=== PATIENT | female | born 1990 | race Caucasian/White ===

== ENCOUNTER → 2019-08-22 10:52 | Outpatient (CLI) | payer OTHER, MEDICAID, SELFPAY ==
[2019-08-22 11:58] LABS: Add Manual Diff / Slide Review NO; Basophils Absolute Auto 0 /uL (0-100); Basophils Percent Auto 0.2 % (0-2); Eosinophils Absolute Auto 100 /uL (0-450); Eosinophils Percent Auto 0.4 % (2-4); Hemoglobin 13.9 g/dL (12.0-16.0); Lymphocytes Absolute Auto 2000 /uL (1100-4500); Lymphocytes Percent Auto 14.7 % (25-40); Mean Corpuscular Hemoglobin 31.4 PG (26-34); Mean Corpuscular Volume 92.3 fL (80-100); Monocytes Absolute Auto 900 /uL (0-900); Monocytes Percent Auto 6.5 % (3-14); Neutrophils Absolute Auto 10800 /uL (1500-7000); Neutrophils Percent Auto 78.2 % (50-75); Platelet Count 285 X10^3/uL (150-400); Red Blood Cell Count 4.44 X10^6/uL (4.0-5.2); Red Cell Distribution Width 12.9 % (11.6-14.8); White Blood Cell Count 13.8 X10^3/uL (4.5-11.0)
[2019-08-22 13:02] LABS: Thyroid Stimulating Hormone 4.29 uIU/mL (0.47-4.68)
== END ==
PROVIDERS: PCP Family Medicine; Visit Provider Psychiatry & Neurology Psychiatry
DX: F31.81 Bipolar II disorder (principal); F32.9 Major depressive disorder, single episode, unspecified
CPT/HCPCS: 36415; 84443; 85025

== ENCOUNTER → 2019-12-02 12:04 | Outpatient (CLI) | payer OTHER, MEDICAID, SELFPAY ==
[2019-12-02 12:41] LABS: Hematocrit 41.1 % (36-46); Mean Corpuscular HGB Conc 34.1 % (30-36); Mean Corpuscular Hemoglobin 31.3 PG (26-34); Mean Corpuscular Volume 91.7 fL (80-100); Platelet Count 283 X10^3/uL (150-400); Red Blood Cell Count 4.48 X10^6/uL (4.0-5.2); Red Cell Distribution Width 12.5 % (11.6-14.8); White Blood Cell Count 6.7 X10^3/uL (4.5-11.0)
[2019-12-02 13:06] LABS: Alanine Aminotransferase 21 IU/L (<35); Albumin 4.6 g/dL (3.5-5.0); Albumin Globulin Ratio 1.4 (1.0-2.8); Alkaline Phosphatase 57 U/L (38-126); Aspartate Aminotransferase 24 IU/L (14-36); BUN Creatinine Ratio 22.9 (6-22); Bilirubin Total 0.7 mg/dL (0.2-1.3); Blood Urea Nitrogen 16 mg/dL (7-17); Calcium 9.5 mg/dL (8.4-10.2); Carbon Dioxide 27 mmol/L (22-32); Chloride 106 mmol/L (98-107); Cholesterol 197 mg/dL (140-199); Estimated Glomerular Filt Rate > 60.0 mL/min (>60); Globulin 3.3 g/dL (1.7-4.1); Glucose 95 mg/dL (70-100); HDL Cholesterol 53 mg/dL (40-60); HEMOLYSIS < 15 (0-50); LDL Cholesterol Calculated 131 mg/dL (<100); Potassium 4.6 mmol/L (3.4-5.1); Sodium 139 mmol/L (137-145); Total Protein 7.9 g/dL (6.3-8.2); Triglycerides 66 mg/dL (35-150)
[2019-12-02 13:10] LABS: C-Reactive Protein Quant < 0.5 mg/dL (<1.0)
[2019-12-02 13:46] LABS: Erythrocyte Sedimentation Rate 8 MM/HR (0-20)
[2019-12-05 14:36] LABS: ANA Screen, IFA Negative (.)
== END ==
PROVIDERS: PCP Nurse Practitioner Family; Referring Provider Nurse Practitioner Family; Visit Provider Nurse Practitioner Family
DX: Z00.00 Encounter for general adult medical examination without abnormal findings (principal); Z13.6 Encounter for screening for cardiovascular disorders; M25.50 Pain in unspecified joint
CPT/HCPCS: 36415; 80053; 80061; 85027; 85651; 86038; 86140

== ENCOUNTER 2020-01-13 10:17 | Observation (INO) | payer OTHER, MEDICAID, SELFPAY ==
[2020-01-13] VITALS (7 sets, daily range): BP systolic 95–121; BP diastolic 54–79; PULSE 52–74; RESP 12–18; TEMP 36.3–37.1; O2SAT 98–100; BMI 33.3
--- NOTE | 2020-01-13 10:30 | DI.CT.S_ITS ---
PROCEDURE: CT ABDOMEN PELVIS W CON INDICATIONS: RLQ pain / wait for labs TECHNIQUE: After the administration of intravenous contrast, 5 mm thick sections acquired from the diaphragm to the symphysis. 5 mm coronal and sagittal reformats were acquired. For radiation dose reduction, the following was used: automated exposure control, adjustment of mA and/or kV according to patient size. COMPARISON: None. FINDINGS: Image quality: Excellent. ABDOMEN: Lung bases: Lung bases are clear. Heart size is normal. Solid organs: Liver is normal in size and enhancement. Gallbladder wall does not appear thickened. Biliary system is non dilated. Pancreas enhances normally. Spleen is normal in size and enhancement. No adrenal nodules. Kidneys demonstrate normal size and enhancement, without hydronephrosis. Peritoneum and bowel: In this patient with this given history, scrutiny is given to the appendix. The appendix demonstrates minimal increased caliber, as on series 2 image 65 measuring 8 mm. There is mild hyperenhancement seen of the wall of the appendix. There are apparently 2 appendicoliths present, as on series 2 images 67 and 68. No findings of perforation or abscess can be seen. Bowel loops demonstrate normal wall thickness and caliber. No free fluid or air. Nodes and vessels: No retroperitoneal or mesenteric adenopathy by size criteria. Aorta and inferior vena cava are normal in size. Miscellaneous: No ventral hernias. PELVIS: Genitourinary: Bladder wall thickness is normal. There is an apparent hemorrhagic cyst involving the left ovary that measures 1.8 cm. No abnormality of the right ovary can be seen. The uterus is unremarkable. Miscellaneous: No inguinal hernias or adenopathy. Bones: No suspicious bony lesions. No vertebral body compression fractures. IMPRESSION: These imaging findings are most compatible with early appendicitis. No findings of perforation or abscess can be seen. Apparent LEFT ovarian hemorrhagic cyst. At clinical discretion, a followup pelvic ultrasound is suggested in 6 weeks to assure resolution/ improvement. Dictated by: Ricky De La Rosa M.D. on 01/13/2020 at 11:07 Approved by: Ricky De La Rosa M.D. on 01/13/2020 at 11:10
[2020-01-13 10:40] LABS: Add Manual Diff / Slide Review NO; Basophils Absolute Auto 0 /uL (0-100); Basophils Percent Auto 0.5 % (0-2); Eosinophils Absolute Auto 200 /uL (0-450); Eosinophils Percent Auto 1.9 % (2-4); Hematocrit 40.9 % (36-46); Hemoglobin 14.3 g/dL (12.0-16.0); Lymphocytes Absolute Auto 2800 /uL (1100-4500); Lymphocytes Percent Auto 30.9 % (25-40); Mean Corpuscular Hemoglobin 31.5 PG (26-34); Mean Corpuscular Volume 90.3 fL (80-100); Monocytes Absolute Auto 800 /uL (0-900); Monocytes Percent Auto 8.9 % (3-14); Neutrophils Absolute Auto 5200 /uL (1500-7000); Neutrophils Percent Auto 57.8 % (50-75); Platelet Count 249 X10^3/uL (150-400); Red Blood Cell Count 4.53 X10^6/uL (4.0-5.2); Red Cell Distribution Width 12.4 % (11.6-14.8)
[2020-01-13] MEDS: SODIUM CHLORIDE 0.9% 1,000 ML 1000 ML IV (10:40)
[2020-01-13] MEDS: ONDANSETRON 4 MG/2 ML INJ IV ×3 (10:43→20:06)
[2020-01-13] MEDS: MORPHINE 4 MG/ML INJ IV ×2 (10:43→13:41)
[2020-01-13 10:53] LABS: INR 1.1 (0.9-1.3); Prothrombin Time 12.2 SECONDS (10.1-12.7)
[2020-01-13 10:55] LABS: PTT Partial Thromboplastin Tim 35 SECONDS (26.4-36.2)
[2020-01-13 10:57] LABS: Alanine Aminotransferase 14 IU/L (<35); Albumin 4.7 g/dL (3.5-5.0); Albumin Globulin Ratio 1.5 (1.0-2.8); Alkaline Phosphatase 59 U/L (38-126); Aspartate Aminotransferase 30 IU/L (14-36); BUN Creatinine Ratio 22.4 (6-22); Bilirubin Total 0.7 mg/dL (0.2-1.3); Blood Urea Nitrogen 15 mg/dL (7-17); Calcium 9.8 mg/dL (8.4-10.2); Carbon Dioxide 20 mmol/L (22-32); Chloride 107 mmol/L (98-107); Estimated Glomerular Filt Rate > 60.0 mL/min (>60); Globulin 3.1 g/dL (1.7-4.1); Glucose 96 mg/dL (70-100); HEMOLYSIS < 15 (0-50); Lipase 174 U/L (23-300); Sodium 138 mmol/L (137-145); Total Protein 7.8 g/dL (6.3-8.2)
--- NOTE | 2020-01-13 11:19 | ED_ITS ---
HPI - Abdominal Pain General Chief Complaint: Abdominal Pain Stated Complaint: Really bad, sharp pain in right lower abdomen Time Seen by Provider: 01/13/20 10:36 Source: patient Mode of arrival: Ambulatory Limitations: no limitations History of Present Illness HPI narrative: CC: Right lower quadrant abdominal pain HPI: The patient is a 29-year-old female who presents to the emergency department with a severe right lower quadrant abdominal pain that is sharp and crampy in nature. The pain and discomfort developed at between 3 and 4:00 a.m. this morning waking the patient from sleep. She denies ever having a history of kidney stones. She states that initially she had difficulty in going to the bathroom but then was able to urinate without any discomfort. She has not noted any increased urinary frequency, urgency, hematuria, or cloudy urine. She has had no significant nausea or vomiting. She has never before experience this pain and discomfort and appears to be very uncomfortable. She states that the pain is 9 to 10/10 in nature. Her last menstrual period was December 25 which was normal. She denies being . She has had no vaginal discharge or vaginal arm she has had no nasal congestion or stuffiness shortness of breath cough chest pain palpitations or dizziness. She denies any back pain diarrhea. Related Data Previous Rx's Medication Instructions Recorded hydroxyzine pamoate 25 mg capsule 25 mg PO BID PRN #60 cap 12/15/19 lamotrigine 100 mg tablet 200 mg PO BEDTIME #60 tab 12/15/19 Allergies Allergy/AdvReac Type Severity Reaction Status Date / Time No Known Drug Allergies Allergy Verified 01/13/20 10:27 Review of Systems Review of Systems Narrative: Her review of systems were all negative except for those mentioned in the history of present illness. Patient History Medical History Allergies (Chronic ~2003) Anxiety (Chronic ~2009) Bipolar disorder (Acute 2001) Depression (Chronic) Headache (Chronic ~2005) Hearing loss (Chronic) Joint pain (Acute 2012) Recurrent sinusitis (Chronic) Rosacea (Chronic) Sciatica (Chronic ~2015) Shoulder pain (Chronic ~2010) Tinnitus (Chronic) Vertigo (Chronic) Surgical History (Resolved ~2011) Anesthesia (Resolved) [place] teeth removed (Resolved ~2008) Family History Father Cataracts, bilateral Mother Diabetes mellitus Brother Mental health problem Social History household members: spouse Smoking Status: Never smoker Smoking Status: Never smoker alcohol intake frequency: 0-2 drinks per day Substance Use Type: marijuana Exam Narrative Exam Narrative: PHYSICAL EXAM: CONSTITUTIONAL: Awake, Alert, Oriented, Coherent, Cooperative in Moderate distress. He appears uncomfortable as though she is having a kidney stone. Otherwise she does not appear ill or toxic. HEAD: AT/NC EENT: PERRL, FROM of eyes, no discharge, NOSE:No epistaxis or nasal drainage MOUTH:Oral mucosa is moist and pink, posterior pharynx is without erythema or exudate. NECK: Supple, no obvious JVD, Trachea is midline without stridor, no palpable LN. SPINE: Palpation of the cervical, Thoracic, Lumbar or Sacral spine reveals no gross deformity or tenderness. No CVA tenderness. THORAX: No deformity, retractions, chest wall tenderness. LUNGS: Clear, symmetrical breath sounds without respiratory distress. HEART: Normal heart tones, regular rhythm and rate without murmur. ABDOMEN: Soft, globular, doughy, rotund, tender in the right lower quadrant with guarding but no rebound. No palpable mass. LYMPHATIC: no palpable spleen. EXTREMITIES: No edema, deformity, tenderness or cyanosis. SKIN: No rash, bruising, petechiae or purpura. NEURO: Awake, alert, oriented, conversive, cranial nerves II-XII are symmetrical , moves all 4 extremities and is ambulatory. Initial Vital Signs Initial Vital Signs: Vital Signs Temperature 98.7 F 01/13/20 10:20 Pulse Rate 72 01/13/20 10:20 Respiratory Rate 18 01/13/20 10:20 Blood Pressure 112/57 L 01/13/20 10:20 Pulse Oximetry 99 01/13/20 10:20 Course Course Course Narrative: 12:38: The patient's CT scan of her abdomen reveals imaging consistent with early appendicitis. There was no evidence of a perforation or abscess at this site time. There is a left ovarian hemorrhagic cyst present ultrasound in [address] Macias is seen another patient in the emergency department will inform her to evaluate this patient. 12:44: The patient and her significant other were informed that she has early appendicitis and that she would probably be evaluated by Dr. Macias general surgeon on-call. She stated that between 9 and 10:00 a.m. this morning she had water to drink otherwise she has had nothing to eat or drink since last night around 6:00 p.m. at which time she ate chicken. She denies any allergies. Orders Ordered: Acetaminophen (Tylenol) 650 mg PO Q6HR PRN PRN Reason: Pain, Mild (1-3) Last Admin: 01/13/20 20:06 Dose: 650 mg Documented by: JAIDEN Docusate Sodium (Colace) 100 mg PO BID PRN PRN Reason: Constipation Hydroxyzine Pamoate (Vistaril) 25 mg PO Q6HR PRN PRN Reason: Anxiety Lactated Ringer's (Lactated Ringers) 1,000 mls @ 90 mls/hr IV CONT [facility] Last Admin: 01/14/20 01:08 Dose: 90 mls/hr Documented by: Infusion: 01/14/20 00:58 Dose: 125 mls/hr Documented by: Admin: 01/13/20 16:58 Dose: 125 mls/hr Documented by: JAIDEN Piperacillin/Tazobactam/Dextrose (Zosyn) 3.375 gm in 50 mls @ 100 mls/hr IV Q6H [facility] Last Infusion: 01/14/20 07:46 Dose: 0 mls/hr Documented by: Admin: 01/14/20 06:20 Dose: 100 mls/hr Documented by: Infusion: 01/14/20 02:32 Dose: 0 mls/hr Documented by: Admin: 01/14/20 01:08 Dose: 100 mls/hr Documented by: Infusion: 01/13/20 20:03 Dose: 0 mls/hr Documented by: Admin: 01/13/20 19:13 Dose: 100 mls/hr Documented by: JAIDEN Influenza Virus Vaccine (Flu Vaccine) 0.5 ml IM .ONCE ONE Stop: 01/14/20 09:01 Ketorolac Tromethamine (Toradol) 15 mg IV Q6H PRN PRN Reason: Pain, Moderate (4-6) Stop: 01/18/20 13:50 Lamotrigine (Lamictal) 200 mg PO BEDTIME REYES Last Admin: 01/13/20 22:50 Dose: 200 mg Documented by: JAIDEN Morphine Sulfate (Morphine) 4 mg IV Q4HR PRN PRN Reason: pain 4-10 Stop: 01/14/20 13:29 Last Admin: 01/13/20 13:41 Dose: 4 mg Documented by: CODY Morphine Sulfate (Morphine) 2 mg IV Q4HR PRN PRN Reason: Pain, Moderate (4-6) Last Admin: 01/14/20 00:11 Dose: 2 mg Documented by: FAY Naloxone HCl (Narcan) 0.2 mg IV Q2MIN PRN PRN Reason: Opiate Reversal Non-Formulary Medication (Patient's Own Medication) 0 each PO PRN PRN PRN Reason: HOME MEDICATION STOREAGE Ondansetron HCl (Zofran) 4 mg IV Q4HR PRN PRN Reason: nausea / vomiting Stop: 01/14/20 13:28 Last Admin: 01/13/20 20:06 Dose: 4 mg Documented by: JAIDEN Ondansetron HCl (Zofran) 4 mg IV Q4HR PRN PRN Reason: Nausea And Vomiting Last Admin: 01/13/20 17:13 Dose: 4 mg Documented by: JAIDEN Oxycodone/Acetaminophen (Percocet 5/325) 1 tab PO Q4HR PRN PRN Reason: Pain, Moderate (4-6) Discontinued Medications Sodium Chloride (Normal Saline 0.9%) 1,000 mls @ 1,000 mls/hr IV BOLUS ONE Stop: 01/13/20 11:29 Last Infusion: 01/13/20 11:45 Dose: 0 mls/hr Documented by: Admin: 01/13/20 10:40 Dose: 1,000 mls/hr Documented by: MARGARITA Piperacillin/Tazobactam/Dextrose (Zosyn) 4.5 gm in 100 mls @ 200 mls/hr IV NOW ONE Stop: 01/13/20 13:26 Last Infusion: 01/13/20 14:00 Dose: 0 mls/hr Documented by: Admin: 04/25/20 13:14 Dose: 200 mls/hr Documented by: CODY Sodium Chloride (Normal Saline 0.9%) 1,000 mls @ 150 mls/hr IV BOLUS ONE Stop: 01/13/20 19:45 Last Infusion: 01/13/20 14:31 Dose: 0 mls/hr Documented by: Admin: 01/13/20 13:14 Dose: 150 mls/hr Documented by: CODY Lactated Ringer's (Lactated Ringers) 1,000 mls @ 100 mls/hr IV CONT REYES Last Admin: 01/13/20 23:34 Dose: Not Given Documented by: FAY Piperacillin/Tazobactam/Dextrose (Zosyn) 3.375 gm in 50 mls @ 100 mls/hr IV Q6H [facility] Influenza Virus Vaccine (Flu Vaccine) 0.5 ml IM .ONCE ONE Stop: 01/13/20 14:52 Morphine Sulfate (Morphine) 4 mg IV NOW ONE Stop: 01/13/20 10:41 Last Admin: 01/13/20 10:43 Dose: 4 mg Documented by: MARGARITA Ondansetron HCl (Zofran) 4 mg IV NOW ONE Stop: 01/13/20 10:41 Last Admin: 01/13/20 10:43 Dose: 4 mg Documented by: MARGARITA Vital Signs Vital signs: Vital Signs - 8 hr 01/13/20 10:20 01/13/20 10:53 01/13/20 11:18 Temperature 98.7 F Pulse Rate 72 74 70 Respiratory Rate 18 15 12 Blood Pressure 112/57 L Blood Pressure [Left Arm] 95/54 L 97/58 L Pulse Oximetry 99 99 MDM - Abdominal Pain Lab Data Result diagrams: 01/14/20 05:00 01/14/20 05:00 Labs: Lab Results 01/13/20 01/13/20 01/13/20 Range/Units 10:30 10:30 10:30 WBC 9.0 (4.5-11.0) X10^3/uL RBC 4.53 (4.0-5.2) X10^6/uL Hgb 14.3 (12.0-16.0) g/dL Hct 40.9 (36-46) % MCV 90.3 (80-100) fL MCH 31.5 (26-34) PG MCHC 35.0 (30-36) % RDW 12.4 (11.6-14.8) % Plt Count 249 (150-400) X10^3/uL Neut % (Auto) 57.8 (50-75) % Lymph % (Auto) 30.9 (25-40) % [place] % (Auto) 8.9 (3-14) % Eos % (Auto) 1.9 L (2-4) % Baso % (Auto) 0.5 (0-2) % Neut # (Auto) 5200 (6001-6528) /uL Lymph # (Auto) 2800 (6324-5052) /uL [place] # (Auto) 800 (0-900) /uL Eos # (Auto) 200 (0-450) /uL Baso # (Auto) 0 (0-100) /uL PT 12.2 (10.1-12.7) SECONDS INR 1.1 (0.9-1.3) APTT 35 (26.4-36.2) SECONDS Sodium 138 (137-145) mmol/L Potassium 4.0 (3.4-5.1) mmol/L Chloride 107 (98-107) mmol/L Carbon Dioxide 20 L (22-32) mmol/L BUN 15 (7-17) mg/dL Creatinine 0.67 (0.52-1.04) mg/dL Estimated GFR > 60.0 (>60) mL/min BUN/Creatinine Ratio 22.4 H (6-22) Glucose 96 (70-100) mg/dL Calcium 9.8 (8.4-10.2) mg/dL Total Bilirubin 0.7 (0.2-1.3) mg/dL AST 30 (14-36) IU/L ALT 14 (<35) IU/L Alkaline Phosphatase 59 (38-126) U/L Total Protein 7.8 (6.3-8.2) g/dL Albumin 4.7 (3.5-5.0) g/dL Globulin 3.1 (1.7-4.1) g/dL Albumin/Globulin Ratio 1.5 (1.0-2.8) Lipase 174 (23-300) U/L COVID-19 PCR (Not Detect) 01/13/20 Range/Units 12:57 WBC (4.5-11.0) X10^3/uL RBC (4.0-5.2) X10^6/uL Hgb (12.0-16.0) g/dL Hct (36-46) % MCV (80-100) fL MCH (26-34) PG MCHC (30-36) % RDW (11.6-14.8) % Plt Count (150-400) X10^3/uL Neut % (Auto) (50-75) % Lymph % (Auto) (25-40) % [place] % (Auto) (3-14) % Eos % (Auto) (2-4) % Baso % (Auto) (0-2) % Neut # (Auto) (6199-9376) /uL Lymph # (Auto) (5255-3457) /uL [place] # (Auto) (0-900) /uL Eos # (Auto) (0-450) /uL Baso # (Auto) (0-100) /uL PT (10.1-12.7) SECONDS INR (0.9-1.3) APTT (26.4-36.2) SECONDS Sodium (137-145) mmol/L Potassium (3.4-5.1) mmol/L Chloride (98-107) mmol/L Carbon Dioxide (22-32) mmol/L BUN (7-17) mg/dL Creatinine (0.52-1.04) mg/dL Estimated GFR (>60) mL/min BUN/Creatinine Ratio (6-22) Glucose (70-100) mg/dL Calcium (8.4-10.2) mg/dL Total Bilirubin (0.2-1.3) mg/dL AST (14-36) IU/L ALT (<35) IU/L Alkaline Phosphatase (38-126) U/L Total Protein (6.3-8.2) g/dL Albumin (3.5-5.0) g/dL Globulin (1.7-4.1) g/dL Albumin/Globulin Ratio (1.0-2.8) Lipase (23-300) U/L COVID-19 PCR Not detected (Not Detect) Point of care testing: Point of Care Testing Test Results Negative Urine Dip Bedside Urine Glucose Negative Bedside Urine Bilirubin - Negative Bedside Urine Ketone - Negative Urine Specific [place] 1.010 Bedside Urine Occult Blood - Negative Bedside Urine pH 8.0 Bedside Urine Protein - Negative Bedside Urine Urobilinogen - Negative Bedside Urine Nitrite - Negative Bedside Urine Leukocytes - Negative Esterase Discharge Plan Departure Patient Disposition: Admitted As Inpatient Clinical Impression: Abdominal pain Qualifiers: Abdominal location: right lower quadrant Qualified Code(s): R10.31 - Right lower quadrant pain Acute appendicitis Qualifiers: Acute appendicitis type: unspecified acute appendicitis type Qualified Code(s): K35.80 - Unspecified acute appendicitis Discharge Date/Time: 01/13/20 14:44 Referrals: Irene Patino ARNP [Primary Care Provider] - Admit Date/Time: 01/13/20 13:38 Admit Provider: Shyanne Macias
[2020-01-13] MEDS: SODIUM CHLORIDE 0.9% 1,000 ML 150 ML IV (13:14)
[2020-01-13] MEDS: PIPERACILLIN-TAZO 4.5 GM/100 ML FROZ.PIGGY IV (13:14)
--- NOTE | 2020-01-13 13:54 | P.HP_ITS ---
History of Present Illness History of Present Illness Date Patient Seen: 01/13/20 Time Patient Seen: 13:54 Chief complaint: Really bad, sharp pain in right lower abdomen Narrative: This is a 29yo woman with history of bipolar disorder who presented to the emergency department with a severe right lower quadrant abdominal pain starting at about 3AM. She denies dysuria, nausea, vomiting, diarrhea, or constipation. She denies fevers/chills. CT scan of her abdomen is consistent with early acute appendicitis. ROS: Thirteen system review is otherwise negative other than as mentioned below and in HPI. PE: GENERAL: Alert, comfortable. Appears stated age. Answers questions promptly and appropriately. Vital signs noted. HENT: Normocephalic, atraumatic. Hearing intact. Oral mucosa is pink and moist. EYES: Conjunctiva pink, sclera white, no periorbital swelling. CARDIOVASCULAR: Regular rate. No pedal edema. RESPIRATORY: Non-tachypneic, breathing comfortably on room air. GASTROINTESTINAL: Abdomen soft and non-distended; focal TTP in RLQ and right flank; negative rovsing sign MUSCULOSKELETAL: Equal tone and mass bilaterally. SKIN: Warm, dry, soft, appropriate color for ethnicity. No other lesions, rashes, or wounds. NEURO: Alert and Oriented X 3. No gross sensory deficits, or cognitive issues. PSYCH: Appropriate affect and mood. Patient History Medical History Allergies (Chronic ~2003) Anxiety (Chronic ~2009) Bipolar disorder (Acute 2001) Depression (Chronic) Headache (Chronic ~2005) Hearing loss (Chronic) Joint pain (Acute 2012) Recurrent sinusitis (Chronic) Rosacea (Chronic) Sciatica (Chronic ~2015) Shoulder pain (Chronic ~2010) Tinnitus (Chronic) Vertigo (Chronic) Surgical History (Resolved ~2011) Anesthesia (Resolved) [place] teeth removed (Resolved ~2008) Family & Social History Family History Father Cataracts, bilateral Mother Diabetes mellitus Brother Mental health problem Safety & Behavioral: Feels Safe in Current Yes Environment Been Physically Hurt or No Threatened By a Person Tobacco & Substance use: Smoking Status Never smoker alcohol intake frequency 0-2 drinks per day Substance Use Type marijuana Meds Home Medications and Allergies Home Medications Medication Instructions Recorded Confirmed Type hydroxyzine pamoate 25 mg capsule 25 mg PO BID PRN #60 cap 12/15/19 01/13/20 Rx lamotrigine 100 mg tablet 200 mg PO BEDTIME #60 tab 12/15/19 01/13/20 Rx Allergies Allergy/AdvReac Type Severity Reaction Status Date / Time No Known Drug Allergies Allergy Verified 01/13/20 10:27 Exam Vital Signs (past 8 hours): - 01/13/20 10:20 01/13/20 10:53 01/13/20 11:18 Temperature 98.7 F Pulse Rate 72 74 70 Respiratory Rate 18 15 12 Blood Pressure 112/57 L Blood Pressure [Left Arm] 95/54 L 97/58 L Pulse Oximetry 99 99 01/13/20 13:07 Temperature Pulse Rate 64 Respiratory Rate 15 Blood Pressure Blood Pressure [Left Arm] 95/59 L Pulse Oximetry 98 Oxygen Delivery Method Room Air Objective Imaging CT scan - abdomen: Radiologist's impression: Early acute appendicitis and hemorrhagic left ovarian cyst Labs Result Diagrams: 01/13/20 10:30 01/13/20 10:30 Labs: Laboratory Results - last 24 hr 01/13/20 01/13/20 01/13/20 10:30 10:30 10:30 WBC 9.0 RBC 4.53 Hgb 14.3 Hct 40.9 MCV 90.3 MCH 31.5 MCHC 35.0 RDW 12.4 Plt Count 249 Neut % (Auto) 57.8 Lymph % (Auto) 30.9 [place] % (Auto) 8.9 Eos % (Auto) 1.9 L Baso % (Auto) 0.5 Neut # (Auto) 5200 Lymph # (Auto) 2800 [place] # (Auto) 800 Eos # (Auto) 200 Baso # (Auto) 0 PT 12.2 INR 1.1 APTT 35 Sodium 138 Potassium 4.0 Chloride 107 Carbon Dioxide 20 L BUN 15 Creatinine 0.67 Estimated GFR > 60.0 BUN/Creatinine Ratio 22.4 H Glucose 96 Calcium 9.8 Total Bilirubin 0.7 AST 30 ALT 14 Alkaline Phosphatase 59 Total Protein 7.8 Albumin 4.7 Globulin 3.1 Albumin/Globulin Ratio 1.5 Lipase 174 Assessment & Plan Assessment and plan (1) Acute appendicitis: Qualifiers: Acute appendicitis type: unspecified acute appendicitis type Qualified Code(s): K35.80 - Unspecified acute appendicitis Current visit: Yes Status: Acute (2) Bipolar disorder: Current visit: No Status: Acute (3) Ovarian cyst: Current visit: Yes Status: Acute Assessment & Plan narrative: This is a 29-year-old woman with early acute append icitis. We have submitted her COVID-19 testing, and have put her on IV antibiotics. I discussed with her the risks and benefits of going ahead with surgery versus waiting until her viral test is returned, and keeping her on antibiotics for the night. I favor doing the latter as we can do a more a ppropriate surgical procedure without the restrictions of unknown viral status. Also her appendicitis is early and I think she will do well on antibiotics overnight. I will keep her on clear liquid diet, and if she has a significant turn for the worse we will go ahead to the OR regardless of her viral status. Plan: Clear liquid diet IV fluids Ambulate as tolerated IV Zosyn antibiotics Repeat labs in the morning Go to OR for urgent appendectomy as soon as viral status is known COVID-19 COVID-19 status: Result pending Time Spent With Patient Time with patient: Greater than 35 minutes Quality VTE Deep Vein Thrombosis/Pulmonary Embolism Present on Admission: No
[2020-01-13] MEDS: LACTATED RINGERS 1,000 ML 125 ML IV (16:58)
[2020-01-13] MEDS: PIPERACILLIN-TAZO 3.375 GM/50 ML FROZ.PIGGY IV (19:13)
[2020-01-13] MEDS: ACETAMINOPHEN 325 MG TABLET 650 MG PO (20:06)
[2020-01-13] MEDS: lamoTRIgine 100 MG TABLET 200 MG PO (22:50)
--- NOTE | 2020-01-13 23:43 | PC.NURSE ---
Evening note: Ariadne reports vague nausea that comes & goes, reports relief after medicated with IV Zofran. Denies significant pain, rates abdomen pain at a 3 or 4, denies need for IV Morphine. Tylenol given for her c/o headache pain 01/27. VS stable tonight, HR regular, jon in mid to high 50's. Lungs clear. Abdomen tender, BT hypoactive. Tolerating clear liquids, aware that she is NPO after midnight. Dr Macias here to see patient earlier tonight, she told me the Covid result will probably come back, please don't anyone call me if that is at 3 AM. I entered info as communication order in chart. Dr Macias did tell me to call if patient's status changes or worsens as she would come in to do surgery earlier if need be. IV to R hand very positional, pump beeping often from [id number], Drsg removed & IV repositioned in a few ways with no success. New 22g IV placed by Linden PARADA to L inner forearm & is infusing/flushing with no difficulty. IV to right hand DC'd. Ambulating to BR by self, gait steady, voiding large amounts of clear yellow urine. Patient remains pleasant & oriented x 3 tonight, words of comfort & encouragement offered tonight, she is using call button appropriately.
[2020-01-14] VITALS (10 sets, daily range): BP systolic 93–109; BP diastolic 40–72; PULSE 57–84; RESP 12–82; TEMP 36.1–36.8; O2SAT 16–100; BMI 33.3
--- NOTE | 2020-01-14 | PATH_ITS ---
[facility] Accession Number: [id number] . 01 Material submitted: . appendix - APPENDIX . 01 Clinical history: . REALLY BAD, SHARP PAIN IN RIGHT LOWER ABDOMEN . 02 Diagnosis: Appendix, Appendectomy: Acute appendicitis with dilated appendix and fecalith with reactive lymphoid hyperplasia. No evidence of neoplasia. [facility] 01/17/2020 1223 Local . 02 Electronically signed: . Nathalia Nolan MD, Pathologist NPI- [id number] . 01 Gross description: . Received in formalin, labeled appendix, is an intact appendix (length-6.6 cm, diameter-0.7 cm) with shah-white smooth shiny serosa and attached mesoappendix (up to 2.0 cm in depth). The resection margin is received crimped closed. The lumen contains brown solid soft material. The wall is up to 0.1 cm thick. No nodules, masses or lesions are identified. The resection margin is inked blue. Serially sectioned and entirely submitted proximal to distal in cassettes A1-A3 with the resection margin en face in cassette A1. The tip is bivalved and entirely submitted in cassettes A4-A5. ([id number]) /MRV 01/16/2020 1052 Local . 02 Pathologist provided ICD-10: K35.80 . 02 CPT . 297329 Performed at: 01 [facility] [address] [id number] MD Surinder Winters MD Phone: [phone] Performed at: 02 [facility] [address] [place], [place] [id number] MD Nathalia Nolan MD Phone: [phone]
[2020-01-14] MEDS: MORPHINE 2 MG/ML INJ IV (00:11)
[2020-01-14] MEDS: PIPERACILLIN-TAZO 3.375 GM/50 ML FROZ.PIGGY IV ×2 (01:08→06:20)
[2020-01-14] MEDS: LACTATED RINGERS 1,000 ML 90 ML IV (01:08)
[2020-01-14 02:15] LABS: COVID19 Sendout Not Detected (Not Detect)
[2020-01-14 05:29] LABS: Add Manual Diff / Slide Review NO; Basophils Absolute Auto 0 /uL (0-100); Basophils Percent Auto 0.3 % (0-2); Eosinophils Absolute Auto 200 /uL (0-450); Eosinophils Percent Auto 2.2 % (2-4); Hematocrit 37.1 % (36-46); Hemoglobin 12.6 g/dL (12.0-16.0); Lymphocytes Absolute Auto 3500 /uL (1100-4500); Lymphocytes Percent Auto 43.8 % (25-40); Mean Corpuscular HGB Conc 33.9 % (30-36); Mean Corpuscular Hemoglobin 31.1 PG (26-34); Mean Corpuscular Volume 91.6 fL (80-100); Monocytes Absolute Auto 600 /uL (0-900); Monocytes Percent Auto 7.8 % (3-14); Neutrophils Absolute Auto 3600 /uL (1500-7000); Neutrophils Percent Auto 45.9 % (50-75); Platelet Count 216 X10^3/uL (150-400); Red Blood Cell Count 4.05 X10^6/uL (4.0-5.2); Red Cell Distribution Width 12.5 % (11.6-14.8); White Blood Cell Count 7.9 X10^3/uL (4.5-11.0)
[2020-01-14 05:41] LABS: BUN Creatinine Ratio 13.5 (6-22); Blood Urea Nitrogen 10 mg/dL (7-17); Calcium 8.8 mg/dL (8.4-10.2); Carbon Dioxide 26 mmol/L (22-32); Chloride 106 mmol/L (98-107); Estimated Glomerular Filt Rate > 60.0 mL/min (>60); Glucose 86 mg/dL (70-100); HEMOLYSIS < 15 (0-50); Magnesium 1.8 mg/dL (1.6-2.3); Potassium 4.2 mmol/L (3.4-5.1); Sodium 137 mmol/L (137-145)
--- NOTE | 2020-01-14 09:32 | PC.NURSE ---
VSS. Up to bathroom this morning with standby assistance without difficulty. NPO overnight, IV fluids infusing as ordered. Patient picked up for surgery.
[2020-01-14] MEDS: LACTATED RINGERS 1,000 ML 42 ML IV (09:53)
--- NOTE | 2020-01-14 10:25 | SUR.OPER ---
Supine on padded OR bed, head on pillow, left arm padded and tucked at side, legs uncrossed, safety belt at thigh, tape over blanket over lower legs .
[2020-01-14] MEDS: BUPIVACAINE 0.25% W/ EPI 30 ML VIAL INJ (10:32)
--- NOTE | 2020-01-14 11:04 | PM.OP.1 ---
Operative Date/Time/Diagnoses Date of procedure: 01/14/20 Time of procedure: 11:04 Pre-op diagnosis: Early acute appendicitis Post-op diagnosis: same Procedure & Clinicians Procedure: Laparoscopic appendectomy Same procedure as scheduled: Yes Indications: Acute appendicitis Surgeon: Shyanne Macias Click Yes if Unassisted: Yes Anesthesia Type: General Operative Notes Findings: Thickened appendix without signs of perforation Specimen(s): other (Appendix) Estimated Blood Loss (mL): 1 Procedure in detail: The patient was brought into the operating room and placed supine on the OR table. Sequential compression devices were placed on both legs and turned on. Appropriate perioperative antibiotics were given prior to the start of surgery. General anesthesia was induced the patient was intubated. Malhotra catheter was placed sterilely in the bladder. The abdomen was prepped and draped in sterile fashion. Surgical time-out was conducted. Local anesthetic was injected under the skin just superior to the umbilicus and a 5 mm vertical incision was made at this site. The umbilical stalk was grasped with a Yany and elevated. A Veress needle was passed through the fascia into proper position. The position was tested with a saline drop test which was appropriate for intra-abdominal Veress needle placement. The abdomen was then insufflated in the usual fashion. Once insufflated to 15 mm Hg the Veress needle was removed and a 5 mm optical trocar was placed under direct vision using a 5 mm 30 degree scope. Once the camera was inside the abdomen I took a look around. There was no injury from port placement. Two additional ports were placed in a similar fashion in the suprapubic position and left lower quadrant. The umbilical port was upsized to a 12 mm port. The patient was placed in Trendelenburg position with right side up. The omentum and small bowel was swept the left and the cecum was exposed. The appendix was seen, and was found to be thickened, but not perforated. There was no abscess or phlegmon seen. I grasped the appendix and elevated it, and divided the mesoappendix using the [place] LigaSure. I dissected out the base of the appendix and identified right where it went into the cecum. I placed two 0-PDS endo-loops at the junction of the appendix with the cecum, and then divided the appendix distal to these endo-loops using the [place] LigaSure. There was good hemostasis and no indication of bleeding or leakage. I brought the omentum down over the stump of the appendix. I then used the laparoscopic suture passer and closed the umbilical port site with 0 Vicryl suture through the fascia. At this point the insufflation was removed from the abdomen and the port sites were closed with, 3-O Vicryl in the subcutaneous layers, and 4 Monocryl in the skin. Each port site was sealed with Dermabond. Local anesthetic was given at each of the port sites and in the fascia. This concluded the procedure. At this point the needle sponge and instrument counts were correct. The appendix was passed off the table for pathology. The patient was awakened from anesthesia and extubated. The patient was transferred to the postanesthesia care unit in stable condition. Complications: none Post-operative Condition: stable Disposition: PACU
--- NOTE | 2020-01-14 11:44 | SUR.PHASEI ---
Pt was transferred back to room 218 in stable condition. Beside report to TAL Gifford
[2020-01-14] MEDS: KETOROLAC 15 MG/ML VIAL IV (12:22)
--- NOTE | 2020-01-14 14:09 | PC.NURSE ---
Addendum entered by Balta Skaggs R.N. 01/14/20 14:38: IV dc'd intact. Patient up to void again. Discharge instructions and home care reviewed with patient, she states understanding and has no further questions or concerns at this time. Patient will brick picker her prescriptions tongith from pharmacy of choice. Agrees to call tomorrow to [facility] to ensure follow up appointment is scheduled. Instructed to call surgeon with questions or concerns. Original Note: Patient tolerating clear liquids without nausea or other complaint. Up to void with SB assistance and tolerated well. Voiding without difficulty. Denies lightheadedness or weakness. VSS. Pain well controlled with ketorolac as ordered prn, patient requesting to receive her dose of percocet prior to leaving for increased discomfort to incision while getting dressed and for ride home.
--- NOTE | 2020-01-14 14:10 | CM.DANOTE ---
Patient is a 29 year old female who was admitted on 01/13/20 for Abd Pain. Pt has [facility] and [facility] for insurance and her PCP is Dr. Irene Patino. EMR was reviewed. Per Surgeon, pt with acute appendicitis and currently on IV-Abx and COVID 19 test is negative and will go to surgery today. Per RN, pt was NPO after midnight and off the floor this morning for surgery and currently recovering well and will d/c home this afternoon with no needs or concerns. Pt has a hx of Bipolar dx and is established with Dr. Aiken at [facility] for monthly med management/check ins once a month since Aug 2019 and pt feels that she is well managed and no mental health concerns noted at this time. Pt has local supportive family and spouse. Plan: Patient to d/c home later today via family POV and no SW needs at this time. NIKKI Ibanez Discharge Planning/Care Management CM Discharge Assessment Start: 01/14/20 14:09 Freq: Status: Active Protocol: Document 01/14/20 14:09 (Rec: 01/14/20 14:10 [id number]) Discharge Planning Assessment Assigned Dielectric Embossing Machine Operator NIKKI Sheehan DPOA/Assigned Designee Name none Advance Directives? No Advance Directives on File No History Provided By Patient,Medical Record Has Patient been admitted in last 30 No days? Prior Living Arrangements House Household Members spouse Type of transporation used prior to Drives own vehicle admit Independent with ADL's Yes Is patient alert and oriented? Yes Caregiver for Another No Barriers to Discharge No Discharge Plan Home Transportation Arrangement Family can provide transport home Referrals Initiated None needed Review Status In Process Please Provide Date Initial DC 01/14/20 Assessment Was Performed Next Review Type Continued Stay Review
[2020-01-14] MEDS: OXYCODONE/ACETAMINOPHEN 5/325 TABLET 1 TAB PO (14:12)
[2020-01-14] MEDS: INFLUENZA VACCINE 0.5 ML SYRINGE IM (14:12)
== END 2020-01-14 15:03 | disposition home or self-care (01) ==
LOC: ED 12:55 → AC 14:09
PROVIDERS: Admitting Provider Surgery; Emergency Provider Emergency Medicine; PCP Nurse Practitioner Family; Referring Provider Emergency Medicine; Visit Provider Surgery
PROC: 0DTJ4ZZ Resection of Appendix, Percutaneous Endoscopic Approach (ICD-10-PCS; CPT 44970; principal; 2020-01-14 09:00)
DX: K35.80 Unspecified acute appendicitis (principal); R10.31 Right lower quadrant pain; Z03.818 Encounter for observation for suspected exposure to other biological agents ruled out; Z23 Encounter for immunization; N83.209 Unspecified ovarian cyst, unspecified side; F31.9 Bipolar disorder, unspecified
CPT/HCPCS: 44970; 36415; 74177; 80048; 80053; 81003; 81025; 83690; 83735; 85025; 85610; 85730; 87635; 90471; 90656; 96361; 96365; 96366; 96375; 96376; 99220; 99284; G0378; J1100; J1885; J2270; J2405; J2543; J2704; J3010; Q2038; Q9967

== ENCOUNTER → 2020-11-26 16:41 | Outpatient (CLI) | payer OTHER, MEDICAID, SELFPAY ==
[2020-01-13 14:41] VITALS: BMI 33.3
[2020-11-26 19:58] LABS: Free T4, Direct Thyroxine 1.19 ng/dL (0.78-2.19)
[2020-11-26 20:12] LABS: Thyroid Stimulating Hormone 3.05 uIU/mL (0.47-4.68)
[2020-11-29 14:22] LABS: Lamotrigine Lamictal 7.1 ug/mL (2.0-20.0)
== END ==
PROVIDERS: Referring Provider Psychiatry & Neurology Psychiatry; Visit Provider Psychiatry & Neurology Psychiatry
DX: F31.81 Bipolar II disorder (principal); R45.851 Suicidal ideations; F50.9 Eating disorder, unspecified; F41.9 Anxiety disorder, unspecified
CPT/HCPCS: 36415; 80175; 84439; 84443; 90833; 99214

== ENCOUNTER → 2021-02-28 15:15 | Outpatient (CLI) | payer OTHER, MEDICAID, SELFPAY ==
[2020-01-13 14:41] VITALS: BMI 33.3
[2021-02-28 16:15] LABS: Lithium < 0.2 mmol/L (0.6-1.2)
[2021-02-28 16:19] LABS: Alanine Aminotransferase 18 IU/L (<35); Albumin 4.2 g/dL (3.5-5.0); Albumin Globulin Ratio 1.7 (1.0-2.8); Alkaline Phosphatase 50 U/L (38-126); Aspartate Aminotransferase 22 IU/L (14-36); Bilirubin Total 0.4 mg/dL (0.2-1.3); Blood Urea Nitrogen 12 mg/dL (7-17); Calcium 9.4 mg/dL (8.4-10.2); Carbon Dioxide 25 mmol/L (22-32); Chloride 106 mmol/L (98-107); Estimated Glomerular Filt Rate > 60.0 mL/min (>60); Globulin 2.5 g/dL (1.7-4.1); Glucose 112 mg/dL (70-100); HEMOLYSIS < 15 (0-50); Potassium 3.8 mmol/L (3.4-5.1); Sodium 137 mmol/L (137-145); Total Protein 6.7 g/dL (6.3-8.2)
== END ==
PROVIDERS: Referring Provider Psychiatry & Neurology Psychiatry; Visit Provider Psychiatry & Neurology Psychiatry
DX: F31.81 Bipolar II disorder (principal); Z51.81 Encounter for therapeutic drug level monitoring; R45.851 Suicidal ideations; F50.9 Eating disorder, unspecified; F41.9 Anxiety disorder, unspecified
CPT/HCPCS: 36415; 80053; 80178; 84443; 90833; 99214

== ENCOUNTER → 2021-04-09 16:10 | Outpatient (CLI) | payer OTHER, MEDICAID, SELFPAY ==
[2020-01-13 14:41] VITALS: BMI 33.3
--- NOTE | 2021-04-09 | DI.US.S_ITS ---
PROCEDURE: US PELVIC COMPLETE INDICATIONS: UNSPECIFIED OVARIAN CYST TECHNIQUE: Real-time scanning was performed of the pelvic organs, with image documentation. Additional endovaginal scanning was necessary due to incomplete visualization of the adnexal and endometrial structures by transabdominal scanning. COMPARISON: None. FINDINGS: Uterus: Uterus measures 8 x 5.2 x 3.5 cm. The endometrium measures 7.7 mm in combined thickness. There is no endometrial mass or fluid. No discrete uterine fibroid. Trace amount of simple fluid within cervical canal is seen. Small nabothian cysts are also noted along cervical canal. Ovaries: Right ovary measures 3.3 x 3.8 x 2.8 cm in size. Left ovary measures 3.9 x 2.1 x 2.2 cm in size. 3 right ovarian follicles are noted measures up to 1.6 x 1.4 cm in size in right ovary. Additional sub centimeter left ovarian follicles are also seen. No solid appearing ovarian lesion. Normal blood flow is seen in bilateral ovaries on color Doppler images. Other: No pathologic free abdominal or pelvic fluid. IMPRESSION: 1. Bilateral ovarian follicles with dominant right ovarian follicle as above. No solid appearing ovarian lesion. No evidence of ovarian torsion. 2. No endometrial mass or fluid. No discrete uterine fibroid. Dictated by: Brad Santizo M.D. on 04/09/2021 at 9:27 Approved by: Brad Santizo M.D. on 04/09/2021 at 9:29
== END ==
PROVIDERS: Referring Provider Student in an Organized Health Care Education/Training Program; Visit Provider Student in an Organized Health Care Education/Training Program
DX: N83.209 Unspecified ovarian cyst, unspecified side (principal); N94.10 Unspecified dyspareunia; N88.8 Other specified noninflammatory disorders of cervix uteri
CPT/HCPCS: 76830; 76856

== ENCOUNTER → 2021-04-21 12:29 | Outpatient (CLI) | payer OTHER, MEDICAID, SELFPAY ==
[2020-01-13 14:41] VITALS: BMI 33.3
[2021-04-21 13:48] LABS: Add Manual Diff / Slide Review NO; Basophils Absolute Auto 0 /uL (0-100); Basophils Percent Auto 0.4 % (0-2); Eosinophils Absolute Auto 100 /uL (0-450); Eosinophils Percent Auto 1.4 % (2-4); Hematocrit 39.1 % (36-46); Hemoglobin 13.2 g/dL (12.0-16.0); Lymphocytes Absolute Auto 2400 /uL (1100-4500); Lymphocytes Percent Auto 33.2 % (25-40); Mean Corpuscular HGB Conc 33.8 % (30-36); Mean Corpuscular Hemoglobin 30.5 PG (26-34); Monocytes Absolute Auto 600 /uL (0-900); Neutrophils Absolute Auto 4200 /uL (1500-7000); Platelet Count 252 X10^3/uL (150-400); Red Blood Cell Count 4.34 X10^6/uL (4.0-5.2); Red Cell Distribution Width 13.6 % (11.6-14.8); White Blood Cell Count 7.3 X10^3/uL (4.5-11.0)
== END ==
PROVIDERS: Referring Provider Psychiatry & Neurology Psychiatry; Visit Provider Psychiatry & Neurology Psychiatry
DX: Z51.81 Encounter for therapeutic drug level monitoring (principal); Z79.899 Other long term (current) drug therapy; F31.81 Bipolar II disorder
CPT/HCPCS: 36415; 85025

== ENCOUNTER 2021-10-11 15:25 | Emergency (ER) | payer OTHER, MEDICAID, SELFPAY ==
[2020-01-13 14:41] VITALS: BMI 33.3
[2021-10-11 15:44] VITALS: BP 120/64; PULSE 85; RESP 18; TEMP 36.7; O2SAT 99; BMI 24.3
--- NOTE | 2021-10-11 16:08 | ED_ITS ---
HPI - Extremity Injury (Lower) General Chief Complaint: Extremity Injury, Lower Stated Complaint: Left leg moderate pain/pops with movement x4days Time Seen by Provider: 10/11/21 15:44 Source: patient and family Mode of arrival: Wheelchair History of Present Illness HPI Narrative: Patient is a 31-year-old female here for evaluation of left knee/leg pain. She states that for the past couple days she has had pain on her leg with standing and with twisting movements. She is also having popping in the area. There was no specific incident that caused the discomfort. 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 No prior injuries. Does have a knee brace over the area to help with the discomfort. She does have some discomfort with palpation over the area. Is now developing some left hip discomfort as well. Related Data Home Medications Medication Instructions Recorded Confirmed etonogestrel 68 mg subdermal SUBDERMAL 06/25/21 10/07/21 implant (Nexplanon) Previous Rx's Medication Instructions Recorded hydroxyzine pamoate 50 mg capsule See Rx Instructions PO .COMPLEX 09/23/21 #150 cap MDD 250MG lamotrigine 200 mg tablet,extended 400 mg PO DAILY #180 tab 09/23/21 release 24 hr Allergies Allergy/AdvReac Type Severity Reaction Status Date / Time citalopram Allergy Unknown Verified 10/07/21 10:41 prazosin AdvReac Severe suicidal Verified 10/07/21 10:41 thoughts Review of Systems Constitutional Constitutional: Reports system reviewed and no additional complaints, except as documented Musculoskeletal Musculoskeletal: Reports system reviewed and no additional complaints, except as documented and Reports as per HPI Integumentary/Breasts Skin/Breast: Reports system reviewed and no additional complaints, except as documented Neurologic Neurologic: Reports system reviewed and no additional complaints, except as documented Hematologic/Lymphatic On Anticoagulants: No Patient History Medical History Allergies (~2003) Anxiety (~2009) Depression Headache (~2005) Hearing loss Joint pain (2012) Recurrent sinusitis Rosacea Sciatica (~2015) Shoulder pain (~2010) Tinnitus Vertigo Surgical History (~2011) Anesthesia [place] teeth removed (~2008) Family History Father Cataracts, bilateral Mother Diabetes mellitus Brother Mental health problem Social History household members: spouse Smoking Status: Never smoker alcohol intake: current Smoking Status: Never smoker alcohol intake frequency: a few times a month Substance Use Type: marijuana Exam Initial Vital Signs Initial Vital Signs: Vital Signs Temperature 98.0 F 10/11/21 15:44 Pulse Rate 85 10/11/21 15:44 Respiratory Rate 18 10/11/21 15:44 Blood Pressure 120/64 10/11/21 15:44 Pulse Oximetry 99 10/11/21 15:44 HENMT Head: normal to inspection and normocephalic Resp Effort & Inspection: normal respiratory effort Cardio Rate: regular rate Skin General: no rashes or lesions noted Neuro General: patient alert and patient awake Sensory Exam: no sensory deficits noted Extrem Other: Patient does have tenderness to palpation along the mediolateral joint line. She is able to do a straight leg raise. Ligaments intact with functional testing. Psych Appearance: grossly normal and well kempt Course Orders Ordered: ED Orders 10/11/21 16:09 XR knee LT 3V Stat 10/11/21 16:50 Consult to DIRECTOR OF COLLECTIONS - Yard Clerk Stat Discontinued Medications Rivaroxaban (Rivaroxaban 10 Mg Tablet) 15 mg PO NOW ONE Stop: 10/11/21 16:23 Last Admin: 10/11/21 16:45 Dose: Not Given Documented by: Vital Signs Vital signs: Vital Signs - 8 hr 10/11/21 15:44 Temperature 98.0 F Pulse Rate 85 Respiratory Rate 18 Blood Pressure 120/64 Pulse Oximetry 99 MDM - Extremity Injury (Lower) Imaging Data Extremity x-ray #1: Radiologist's Impression: [address] [address] XRay Report Signed Patient: Ariadne Mckoy MR#: [id number] : 1990 Acct:[id number] Age/Sex: 31 / F Date of Service: 10/11/21 Loc: ED Accession Number: [id number] ?? Procedure: XR knee LT 3V Ordering Provider: Martin Escobar D.O. PROCEDURE:? XR KNEE LT 3V ? INDICATIONS:? pain with movement ? TECHNIQUE:? 3 views of the knee were acquired.? ? COMPARISON:? None. ? FINDINGS:? ? Bones:? No fractures or dislocations.? No suspicious bony lesions.? The knee joint spaces are relatively well preserved. ? Soft tissues:? There is a mild joint effusion.? No suspicious soft tissue calcifications. ? ? ? IMPRESSION:? Mild joint effusion, without a significant bony abnormality seen by plain film. ? If it would be helpful for clinical management decision making, please consider a dedicated, scheduled knee MRI for further evaluation (assuming that there is no contraindication).? ? ? Dictated by: Ricky De La Rosa M.D. on 10/11/2021 at 15:39 ? ? Approved by: Ricky De La Rosa M.D. on 10/11/2021 at 15:40 MDM Narrative Medical decision making narrative: Patient is neurovascularly intact. I do have a higher suspicion that this is a meniscus injury given her presentation and a very low suspicion of any ligament injury. No fractures noted on the x-rays. Patient does have a knee brace and she was instructed she could continue to use this as needed. Patient does not have a primary doctor. Social work was consulted to help with this. Patient was given return precautions and follow-up instructions. She expressed understanding and agreement. Discharge Plan Departure Patient Disposition: Home Clinical Impression: Knee pain Instructions: DI for Knee Pain Activity Restrictions/Additional Instructions: The x-ray did not show any signs of fractures. I do suspect that this is a meniscus injury given your presentation. You can use the knee brace as needed. He will need follow-up with a primary provider. Return to the emergency department for any new or worsening symptoms. Prescriptions: No Action hydroxyzine pamoate 50 mg capsule See Rx Instructions PO .COMPLEX MDD 250MG Qty: 150 5RF Rx Instructions: PO; 100mg BID scheduled; ok to take 50mg daily prn severe anxiety lamotrigine 200 mg tablet extended release 24hr 400 mg PO DAILY Qty: 180 1RF Nexplanon 68 mg implant subdermal 0RF
--- NOTE | 2021-10-11 16:09 | DI.RAD.S_ITS ---
PROCEDURE: XR KNEE LT 3V INDICATIONS: pain with movement TECHNIQUE: 3 views of the knee were acquired. COMPARISON: None. FINDINGS: Bones: No fractures or dislocations. No suspicious bony lesions. The knee joint spaces are relatively well preserved. Soft tissues: There is a mild joint effusion. No suspicious soft tissue calcifications. IMPRESSION: Mild joint effusion, without a significant bony abnormality seen by plain film. If it would be helpful for clinical management decision making, please consider a dedicated, scheduled knee MRI for further evaluation (assuming that there is no contraindication). Dictated by: Ricky De La Rosa M.D. on 10/11/2021 at 15:39 Approved by: Ricky De La Rosa M.D. on 10/11/2021 at 15:40
[2021-10-11 17:29] VITALS: BP 100/57; PULSE 80; RESP 16; TEMP 36.6; O2SAT 98
--- NOTE | 2021-10-11 18:02 | CM.SWNOTE ---
Addendum entered by Janis Finn 10/11/21 18:19: Patient endorses that she recently had her first EMDR session with therapist. Patient provides consent for MOTORCYCLE DELIVERER to contact Dr. Aiken regarding patient's ED encounter and regarding establishing care with new PCP. NIKKI Sharp Original Note: MOTORCYCLE DELIVERER Note MOTORCYCLE DELIVERER receives consult and meets with patient. Patient is 31 y/o female who presents to the ED with concern for leg and knee pain. Patient has hx of Bipolar 2 Disorder, Anxiety, Excessive Daytime Sleepiness and Attention & Concentration Deficit. Patient presents with who is patient's main support and indicates he can stay in room with patient. Patient presents as anxious, but able to communicate and advocate for her needs. Patient states she sees Dr. Aiken for Psychiatry and therapist Marie Veras [facility] but does not have current PCP. Patient states due to stress and limited time due to work has not been able to establish care with PCP. Patient endorses trying to establish care but being unsuccessful due to changes of insurance and life stresses. Patient endorses trouble sleeping and recently had a consult for a sleep study. The sleep study is scheduled for October 2021. During this ED visit the ED provider gives patient a Medical Note to excuse patient from work for two weeks. Patient presents as worried she will let her coworkers down. Patient endorses significant stresses from work, due to limited equipment, limited staff and being overworked. 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 Patient endorses hx of dissociating and states that she went on a walk and lost her phone and was looking for it for over an hour. MOTORCYCLE DELIVERER states that MOTORCYCLE DELIVERER can assist patient in establishing care with PCP. Patient states when she had PCPs at [facility] and [facility] her providers left the practice and she is interested in establishing care with [facility]. Plan: Patient to d/c to home with when medically clear. MOTORCYCLE DELIVERER to assist patient with establishing care with PCP and MOTORCYCLE DELIVERER to f/u with patient on Wednesday. NIKKI Sharp
--- NOTE | 2021-10-15 16:49 | CM.SWNOTE ---
Addendum entered by Janis Finn 10/16/21 13:49: PRODUCT CONTROLLER F/u note PRODUCT CONTROLLER calls [facility], it is reported that [facility] is aware of patient's request for MRI and scheduling is in the works. PRODUCT CONTROLLER calls patient and provides the above information. NIKKI Sharp Original Note: PRODUCT CONTROLLER F/u Note PRODUCT CONTROLLER informs Dr. Aiken's office of patient's presentation to ED and that PRODUCT CONTROLLER will assist patient in establishing care with PCP. PRODUCT CONTROLLER calls [facility] per patient's request to find PCP for patient, it is reported that they do not accept patient's insurance. PRODUCT CONTROLLER calls [facility] in attempt to set up PCP. [facility] clinic guest relations receptionist states that they may have an opening for patient. PRODUCT CONTROLLER receives f/u call from [facility] and it is reported that Dr. Dorado can see patient on 10/30/21 at 3:45 pm. PRODUCT CONTROLLER calls patient and reviews the above. Patient indicates agreement and understanding. Patient endorses that she is trying to extend her leave from work. Patient states that she was in touch with [facility] and she is trying to get an MRI scheduled through [facility]. PRODUCT CONTROLLER to f/u with [facility] provider line tomorrow to inquire further and f/u with patient. NIKKI Sharp
== END 2021-10-11 17:30 | disposition home or self-care (01) ==
PROVIDERS: Emergency Provider Emergency Medicine
DX: M25.562 Pain in left knee (principal)
CPT/HCPCS: 73562; 99281; 99283

== ENCOUNTER → 2021-10-25 10:09 | Outpatient (CLI) | payer OTHER, SELFPAY ==
[2020-01-13 14:41] VITALS: BMI 33.3
--- NOTE | 2021-10-25 10:10 | DI.MRI.S_ITS ---
PROCEDURE: MR KNEE LT WO CON INDICATIONS: Knee injury TECHNIQUE: Noncontrast sagittal PD fast spin echo and T2 fast spin echo with fat saturation, sagittal 3-D FLASH with fat saturation; coronal T1 spin echo and PD fast spin echo with fat saturation, and axial PD fast spin echo with fat saturation through the knee. COMPARISON: [facility], CR, XR KNEE LT 3V, 10/11/2021, 16:09. FINDINGS: Image quality: Excellent. Menisci: Small amount of intermediate signal intensity is seen within the posterior horn of the lateral meniscus without definite communication to the articular surface. The signal approaches the middle third of the tibial articular surface on sagittal gradient echo sequence. Mild artifact is seen extending through the posterior horn of the medial meniscus on spin echo sequences. The lateral meniscus is intact. There is no significant meniscal extrusion. Cruciate ligaments: The anterior and posterior cruciate ligaments appear intact. Medial structures: The medial collateral ligament appears intact. The semimembranosus tendon insertions and meniscocapsular junction appear intact. Visualized portions of the pes anserinus tendons appear normal. No abnormal bursal fluid. Lateral structures: The lateral collateral ligament, long and short heads of the biceps femoris tendon appear intact. The popliteus tendon appears intact. No signs of posterolateral corner injury. Iliotibial band appears normal. Anterior structures: The quadriceps and patellar tendons appear intact. Patellar alignment is normal. No femoral trochlear dysplasia or ventral trochlear prominence. No edema in the infrapatellar fat pad. Bones and cartilage: No bone marrow contusions or fractures. The cartilage of the medial and lateral femorotibial compartments appears normal in thickness. There is mild surface irregularity involving the articular cartilage at the median ridge of the patella. The femoral trochlear cartilage is grossly maintained. Joint space: There is physiologic knee joint fluid. No medial popliteal cyst. IMPRESSION: 1. Small amount of intermediate signal intensity is seen in the posterior horn of the medial meniscus with questionable extension to the tibial articular surface seen on gradient echo sequence only. Findings may represent a very subtle horizontal oblique tear versus slight intrasubstance degeneration. 2. Intact cruciate and collateral ligaments. No acute trabecular bone injury. 3. Mild grade 2 chondromalacia at the median ridge of the patella. Dictated by: Omar Randolph M.D. on 10/25/2021 at 11:17 Approved by: Omar Randolph M.D. on 10/25/2021 at 11:23
== END ==
PROVIDERS: PCP Nurse Practitioner Family; Referring Provider Nurse Practitioner Family; Visit Provider Nurse Practitioner Family
DX: S89.92XA Unspecified injury of left lower leg, initial encounter (principal); M22.42 Chondromalacia patellae, left knee; X58.XXXA Exposure to other specified factors, initial encounter
CPT/HCPCS: 73721

== ENCOUNTER → 2021-11-06 12:30 | Outpatient (CLI) | payer OTHER, MEDICAID, SELFPAY ==
[2020-01-13 14:41] VITALS: BMI 33.3
[2021-11-06 13:44] LABS: UR Morphine/Opiate cutoff 300 Negative (Negative); Ur Creatinine Normal (Normal); Ur Specific Gravity Normal (Normal); Urine Amphetamines Negative (Negative); Urine Barbiturates Negative (Negative); Urine Benzodiazepines Negative (Negative); Urine Cocaine Negative (Negative); Urine MDMA Negative (Negative); Urine Methadone Negative (Negative); Urine Methamphetamines Negative (Negative); Urine Oxycodone Negative (Negative); Urine Phencyclidine Negative (Negative); Urine Tetrahydrocannabinol Positive (Negative); Urine Tricyclic Antidepressant Negative (Negative); Urine pH Normal (Normal)
== END ==
PROVIDERS: PCP Nurse Practitioner Family; Visit Provider Family Medicine Sleep Medicine
DX: G47.00 Insomnia, unspecified (principal); G47.10 Hypersomnia, unspecified; G47.19 Other hypersomnia; G47.30 Sleep apnea, unspecified; G47.11 Idiopathic hypersomnia with long sleep time
CPT/HCPCS: 80305; 95805

== ENCOUNTER → 2024-05-30 09:09 | Outpatient (CLI) | payer OTHER, SELFPAY ==
[2020-01-13 14:41] VITALS: BMI 33.3
[2024-05-30 10:50] LABS: Alanine Aminotransferase 17 IU/L (<35); Albumin 4.2 g/dL (3.5-5.0); Albumin Globulin Ratio 1.7 (1.0-2.8); Alkaline Phosphatase 52 U/L (38-126); Aspartate Aminotransferase 20 IU/L (14-36); BUN Creatinine Ratio 19.7 (6-22); Bilirubin Total 0.4 mg/dL (0.2-1.3); Blood Urea Nitrogen 15 mg/dL (7-17); Calcium 9.1 mg/dL (8.4-10.2); Carbon Dioxide 24 mmol/L (22-32); Chloride 107 mmol/L (98-107); Estimated Glomerular Filt Rate > 60 mL/min (>60); Globulin 2.5 g/dL (1.7-4.1); Glucose 90 mg/dL (70-100); HEMOLYSIS < 15 (0-50); Potassium 4.3 mmol/L (3.4-5.1); Sodium 135 mmol/L (137-145); Total Protein 6.7 g/dL (6.3-8.2)
[2024-06-01 13:36] LABS: Lamotrigine Lamictal 7.3 ug/mL (2.0-20.0)
== END ==
PROVIDERS: PCP Family Medicine; Referring Provider Psychiatry & Neurology Psychiatry; Visit Provider Psychiatry & Neurology Psychiatry
DX: F31.81 Bipolar II disorder (principal); Z79.899 Other long term (current) drug therapy
CPT/HCPCS: 36415; 80053; 80175